=== PATIENT | female | born 1960 | race Caucasian/White ===

== ENCOUNTER 2023-02-14 02:40 | Emergency (ER) | payer MEDICAID, OTHER ==
[2023-02-14 02:54] VITALS: BP 139/56; PULSE 80
[2023-02-14 03:18] LABS: BASOPHILS ABSOLUTE AUTO 0.04 K/uL (0.00-0.10); BASOPHILS PERCENT AUTO 0.5 % (0.1-1.3); EOSINOPHILS ABSOLUTE AUTO 0.07 K/uL (0.00-0.40); EOSINOPHILS PERCENT AUTO 0.9 % (0.0-5.4); HEMATOCRIT 39.7 % (34.3-46.0); HEMOGLOBIN 13.1 g/dL (11.2-15.5); IMMATURE GRAN ABSOLUTE AUTO 0.02 K/uL (0.00-0.23); IMMATURE GRAN PERCENT AUTO 0.3 % (0.0-0.7); LYMPHOCYTES ABSOLUTE AUTO 1.82 K/uL (0.8-3.3); LYMPHOCYTES PERCENT AUTO 24.5 % (11.4-47.7); MEAN CORPUSCULAR HEMOGLOBIN 29.1 pg (31.6-35.5); MEAN CORPUSCULAR VOLUME 88.2 fL (81.4-99.0); MONOCYTES PERCENT AUTO 8.1 % (3.3-12.6); NEUTROPHILS ABSOLUTE AUTO 4.88 K/uL (1.0-7.6); NEUTROPHILS PERCENT AUTO 65.7 % (40.0-78.1); PLATELET COUNT,PLT 216 K/uL (130-375); WHITE BLOOD CELL COUNT,WBC 7.4 K/uL (3.2-11.0)
[2023-02-14 03:35] LABS: A/G RATIO 0.9 (1.2-2.2); ALANINE AMINOTRANSFERASE,ALT 25 U/L (12-78); ALBUMIN 3.2 g/dL (3.4-5.0); ALKALINE PHOSPHATASE 92 U/L (46-116); ANION GAP 9.4 mmol/L (5.0-14.0); ASPARTATE AMNIOTRANSFERASE,AST 14 U/L (15-37); BILIRUBIN TOTAL 0.4 mg/dL (0.2-1.0); BLOOD UREA NITROGEN,BUN 16 mg/dL (7-18); C-REACTIVE PROTEIN 0.17 mg/dL (0.0-0.3); CALCIUM 8.5 mg/dL (8.5-10.1); CARBON DIOXIDE,CO2 28 mmol/L (21-32); CHLORIDE,CL 103 mmol/L (100-108); CREATININE 0.8 mg/dL (0.6-1.0); EST CRCL DRUG DOSING (CG) 62.96 mL/min; ESTIMATED GFR 83 mL/min (>60); GLUCOSE RANDOM 105 mg/dL (74-106); POTASSIUM,K 3.9 mmol/L (3.6-5.2); PROTEIN TOTAL,TP 6.6 g/dL (6.4-8.2); SODIUM,NA 140 mmol/L (140-148)
[2023-02-14] MEDS ORDERED: Iopamidol 755 Mg/ML 100 ML Bottle IV STA (03:37)
[2023-02-14] MEDS ORDERED: Sodium Chloride 0.9% 100 ML IV STA (03:38)
[2023-02-14] MEDS ORDERED: Sodium Chloride 0.9% 10 ML Syringe FLUSH STA (03:38)
== END 2023-02-14 07:20 | disposition home or self-care (01) ==
LOC: JP.ED 02:40
DX: K59.00 Constipation, unspecified (principal); Z88.5 Allergy status to narcotic agent
CPT/HCPCS: 36415; 74177; 80053; 83605; 85025; 86140; 99283; 99284; J3490; Q9967